=== PATIENT | female | born 1965 | race Caucasian/White ===

== ENCOUNTER 2024-10-01 12:37 | Emergency (ER) | payer OTHER, SELFPAY ==
[2024-10-01 13:02] VITALS: BP 130/84; PULSE 80; RESP 18; TEMP 36.9; O2SAT 98; BMI 29.1
--- NOTE | 2024-10-01 13:07 | XR_ITS ---
Examination: CT abdomen and pelvis without contrast. Coronal 3-D reconstructions. Sagittal 2-D reconstructions. Date and time of exam:October 01, 2024 1335 hours INDICATIONS: Right upper abdominal pain beginning 2 weeks ago CTDI: vol (mGy): 9 DLP: (mGycm): 551 Technique: Axial images of the abdomen have been obtained, 3 mm slice thickness Intravenous contrast material has not been administered. Low dose protocols were performed. One or more of the following dose reduction techniques were used; automated exposure control, adjustment of the mA and/or KV according to patient size, use of iterative reconstruction technique. Findings: No focal liver or splenic lesions No gallstones No pancreatic or adrenal mass. Moderate renal parenchymal scar formation No renal or ureteral calculi, no hydronephrosis Aortic calcification no aneurysmal dilatation Normal appendix No bowel obstruction Colonic diverticulosis, no diverticulitis Minimal thickening of the urinary bladder wall up to 4 mm Absent uterus Moderate osteopenia IMPRESSION: Mild cystitis pattern Normal appendix
--- NOTE | 2024-10-01 13:07 | XR_ITS ---
Examination: Abdomen sonogram, Limited Date and time of exam: October 01, 2024 1342 hours INDICATIONS: Right upper abdominal pain and nausea beginning 2 weeks ago Technique: Real-time jack scale transabdominal sonographic images of the upper abdomen obtained. Findings: Normal gallbladder Normal common bile duct 0.3 cm Pancreatic head 2.2 cm Liver 15.5 cm focal fatty sparing adjacent to gallbladder 14 mm and 33 mm Fatty infiltration Normal hepatopedal portal venous flow Patent IVC IMPRESSION: Normal gallbladder Probable focal areas of fatty sparing as above, recommend 3 month follow-up hepatic sonography
--- NOTE | 2024-10-01 13:08 | PD.EDRME ---
Rapid Medical Screening Exam RME Arrival date/time: 10/01/24 12:37 59-year-old female presents emergency department for complaints of nausea and diarrhea Chief Complaint: Abdominal Pain Vital signs: Vital Signs Temperature 98.5 F 10/01/24 13:02 Pulse Rate 80 10/01/24 13:02 Respiratory Rate 18 10/01/24 13:02 Blood Pressure 130/84 10/01/24 13:02 Pulse Oximetry (%) 98 10/01/24 13:02 Oxygen Delivery Method Room Air 10/01/24 13:02
[2024-10-01 13:28] LABS: Basophils # (Auto) 0.1 Thou/mm3 (0.0-0.2); Basophils % (Auto) 1 % (0-2.5); Eosinophils # (Auto) 0.2 Thou/mm3 (0.0-0.5); Eosinophils % (Auto) 2 % (0-10); Hematocrit 40.3 % (36.0-46.0); Hemoglobin 13.9 g/dL (12.0-16.0); Immature Granulocytes % (Auto) 0 % (0-0); Immature Granulocytes Auto 0.04 Thou/mm3 (0.00-0.00); Lymphocytes # (Auto) 3.2 Thou/mm3 (1.0-4.8); Lymphocytes % (Auto) 30 % (10-50); Mean Corpuscular HGB Conc 34.5 g/dl (31.0-37.0); Mean Corpuscular Hemoglobin 28.1 pg (25.0-35.0); Mean Corpuscular Volume 81 fL (80-100); Monocytes # (Auto) 0.5 Thou/mm3 (0.0-0.8); Monocytes % (Auto) 5 % (0-12); Neutrophils # (Auto) 6.5 Thou/mm3 (1.8-7.7); Neutrophils % (Auto) 62 % (37-80); Nucleated Red Blood Cell % 0 /100 WBC (0); Platelet Count 243 Thou/mm3 (140-440); RDW Standard Deviation 41.3 fL (36.4-46.3); Red Blood Count 4.95 Miln/mm3 (4.00-5.20); White Blood Count 10.5 Thou/mm3 (3.6-11.0)
[2024-10-01 13:48] LABS: Alanine Aminotransferase 14 U/L (10-49); Albumin, Serum 4.8 gm/dL (3.5-5.0); Alkaline Phosphatase 89 U/L (46-116); Anion Gap 4 (7-16); Aspartate Amino Transferase 16 U/L (0-34); BUN/Creatinine Ratio 9 Ratio (12-20); Bilirubin,Total 0.2 mg/dL (0.3-1.2); Blood Urea Nitrogen 9 mg/dL (9-23); Calcium 9.8 mg/dL (8.3-10.6); Calcium (Corrected) 9.8 mg/dL (8.5-10.1); Carbon Dioxide 25.4 mMol/L (20.0-31.0); Chloride 109 mMol/L (98-107); Estimated Creatinine Clearance 67.6 mL/min (>60); Globulin 2.4 gm/dL (2.3-3.5); Glucose 102 mg/dL (74-106); Lipase 46 U/L (12-53); Osmolality,Calculated 274 (275-295); Potassium 4.3 mMol/L (3.4-5.1); Sodium 138 mMol/L (136-145); Total Protein 7.2 gm/dL (5.7-8.2); eGFR > 60 See Note
[2024-10-01 14:01] LABS: Collection Type, Urine Clean Catch; WBC,Urine 0 /hpf (0-5)
[2024-10-01 14:50] LABS: Bacteria,Urine Rare; Bilirubin,Urine Negative (Negative); Blood,Urine 1+ (Negative); Clarity,Urine Clear (Clear/Hazy); Color,Urine Lt-Yellow (Lt Yel-Yel); Culture Indicated,Urine Not Indicated; Glucose, Urine Negative (Negative); Ketones,Urine Negative (Negative); Leukocyte Esterase,Urine Negative (Negative); Nitrite,Urine Negative (Negative); PH,Urine 6.5 (5.0-7.0); Protein,Urine Negative (Neg - Trace); RBC,Urine 2 /hpf (0-3); Specific Gravity,Urine 1.008 (1.001-1.035); Squamous Epithelial Cell,Urine 3 /hpf (0-5); Urobilinogen,Urine Negative mg/dL (0.0-1.0)
[2024-10-01 16:37] VITALS: BP 162/94; PULSE 91; RESP 18; TEMP 36.7; O2SAT 98
--- NOTE | 2024-10-01 16:45 | PD.EDADULT ---
ED General RME/HPI General Chief complaint: Abdominal Pain Stated complaint: RUQ ABD PAIN Time Seen by Provider: 10/01/24 16:39 Arrival date/time: 10/01/24 12:37 CC: Epigastric pain that radiates to the back HPI ongoing for the last 2 weeks. The patient admits upon reflection that she has had multiple episodes of this in the past to decades, the last ones approximately 3 to 4 years ago. Patient states she had a complete workup by Dr. Osorio at that time and they found nothing . Patient does not take any [id number] medications or prescription medications for remedy of this situation. Patient denies any lower abdominal pain states she has intermittent nausea but no vomiting, and intermittent diarrhea. Patient is awake alert oriented and patient's other concern is that she has 2 family members who can developed pancreatic cancer and she was current concern this would be it as well. Patient is awake alert oriented mildly anxious but not in any acute distress. RME / HPI RME / HPI narrative: 10/01/24 12:37 59-year-old female presents emergency department for complaints of nausea and diarrhea Related Data Home Medications ?Medication ?Instructions ?Recorded ?Confirmed esomeprazole magnesium 40 mg 40 mg PO QDAY ##0 05/11/13 capsule,delayed release (Nexium) Previous Rx's ?Medication ?Instructions ?Recorded clindamycin HCl 300 mg capsule 1 cap PO TID Infection #30 caps 05/11/13 (Cleocin Hcl) famotidine 20 mg tablet 20 mg PO QDAY #30 tabs 10/01/24 ondansetron 4 mg disintegrating 4 mg PO Q8H #10 tabs 10/01/24 tablet Allergies Allergy/AdvReac Type Severity Reaction Status Date / Time ketorolac (From Toradol) Allergy SWELLING Verified 10/01/24 12:40 Review of Systems Review of Systems Narrative Review of Systems: GEN: No fever, no chills, no weight loss EYES: No discharge, no visual changes, no pain HEENT: No ear pain, no congestion, no sore throat PULM: No shortness of breath, no cough, no congestion CV: No chest pain, no dyspnea on exertion, no palpitations GI: No nausea, no vomiting, no diarrhea, + pain, no constipation : No frequency, no urgency, no dysuria MUSC/SKEL: No joint pain, no back pain SKIN: No rash PSYCH: No hallucinations, no depression HEME/LYMPH: No easy bleeding or bruising tendencies NEURO: No weakness, no headache Past Medical History Past Medical History CARDIAC: Negative Congestive Heart Failure RESPIRATORY: Negative Chronic Obstructive Pulmonary Disease (COPD) GENITOURINARY: Negative Renal Disease ENDOCRINE: Negative Diabetes Mellitus Type 1 or Diabetes Mellitus Type 2 Social History SMOKING STATUS: Current every day smoker ED Exam Narrative Physical exam: [General: Anxious in mild discomfort but not in any acute distress Head normocephalic HEENT: Eyes pupils are PERRLA EOMs are intact mouth pink moist membranes uvula is midline swallow symmetrical phonation is normal. Within acceptable limits Neck is supple nontender Chest equal chest rise nontender to palpation Respiratory: Clear to auscultation no wheezes crackles or rubs CV: Rate rhythm is regular no murmurs rubs or clicks Abdomen mild epigastric pain with no reflexive guarding or rebound tenderness no abdominal pain in the lower quadrants. Positive bowel sounds. Back: No CVA tenderness no spinous process tenderness from cervical spine thoracic and lumbar spine Skin: Intact no petechiae rash induration ulceration or crepitus Extremities: Moving all extremity against resistance cap refill less than 2 seconds neurosensory intact Neuro: Awake alert oriented x3 Glascow coma 15 no focal deficits] Course Course Course Narrative: Given the patient's condition and recurrent history of this suspect this is a gastritis or reflux disease. Patient will be referred to Dr. Kruse, for endoscopy in the meantime the patient be placed in a bland diet given H2 peggy as well as nausea medication patient advised if there is worsening of symptoms spite of these medications return the emergency room immediately for further evaluation. Quality Measures none Orders Category Date Time Status CT abdomen pelvis wo con Stat Exams 10/01/24 13:07 Completed US gall bladder Stat Exams 10/01/24 13:07 Completed CBC Stat Lab 10/01/24 13:12 Completed Comprehensive Metabolic Panel Stat Lab 10/01/24 13:12 Completed Lipase Stat Lab 10/01/24 13:12 Completed UA, C/S IF [Urinalysis, C/S if Indicated] Stat Lab 10/01/24 13:55 Completed Famotidine [Pepcid] Med 10/01/24 16:39 Discontinued 20 mg PO X1 ONE Ondansetron Odt [Zofran Odt] Med 10/01/24 16:39 Discontinued 4 mg PO X1 ONE Vital Signs Vital signs: Vital Signs Temperature 98.5 F 10/01/24 13:02 Pulse Rate 80 10/01/24 13:02 Respiratory Rate 18 10/01/24 13:02 Blood Pressure 130/84 10/01/24 13:02 Pulse Oximetry (%) 98 10/01/24 13:02 Oxygen Delivery Method Room Air 10/01/24 13:02 Discharge Plan Plan Patient Disposition: HOME (Self Care) Patient condition on transfer: Stable Prescriptions/Referrals Prescriptions/Med Rec: New famotidine 20 mg tablet 20 mg PO QDAY Qty: 30 0RF ondansetron 4 mg tablet,disintegrating 4 mg PO Q8H Qty: 10 0RF No Action esomeprazole magnesium [Nexium] 40 MG capsule,delayed release(DR/EC) 40 mg PO QDAY Qty: 0 clindamycin HCl [Cleocin Hcl] 300 MG capsule 1 cap PO TID Qty: 30 0RF Rx Instructions: FOR INFECTION Referrals: Mau Browning MD [Primary Care Provider] - In 1 week Luis Kruse MD [Physician] - In 1 week Problem List Clinical Impression: Epigastric pain Patient/Caregiver Discharge Instructions Education Materials: ED Diet, [place] (Adult), ED Epigastric Pain (Uncertain Cause) Additional Instructions: [place] diet. Take the medication as prescribed, avoid eating or drinking anything for 2 hours before you go to bed. If there is worsening symptoms return the emergency room for further evaluation otherwise follow-up with an outpatient referral for GI consider endoscopy. Print Language: Sinhala Stand Alone Forms: Alexsandra Award Info., Patient Portal Info Letter, Work/School Release PA/[employer] Supervising Physician PA/[employer] Supervising Physician: Mac Young ENP [facility] Clinical Information Provided by: patient Medical Records reviewed [facility] Labs Lab(s) Interpretation(s): CBC shows no acute leukocytosis anemia thrombocytopenia CMP shows a chloride of 109, no other electrolyte imbalances renal impairment transaminitis T. bili at 0.2. Urine is negative for UTI. Imaging Imaging Interpretation(s): Ultrasound of the gallbladder is interpreted by me read by radiology as negative for any acute finding CT of the abdomen is interpreted by read by radiology shows no acute finding there are no pancreatic masses appendix is normal. Medication Administration(s) Medication Administration History Discontinued Medications Famotidine (Famotidine 20 Mg Tablet) 20 mg PO X1 ONE Stop: 05/06/25 16:40 Ondansetron HCl (Ondansetron Odt 4 Mg Tabrap) 4 mg PO X1 ONE; Protocol Stop: 10/01/24 16:40
[2024-10-01] MEDS: ONDANSETRON ODT 4 MG TABRAP PO (16:53)
[2024-10-01] MEDS: FAMOTIDINE 20 MG TABLET PO (16:53)
== END 2024-10-01 16:58 | disposition home or self-care (01) ==
PROVIDERS: Nurse Practitioner Primary Care; Emergency Provider Emergency Medicine; PCP Family Medicine
DX: R10.13 Epigastric pain (principal)
CPT/HCPCS: 36415; 74176; 76705; 80053; 81001; 83690; 85025; 99284; Q0162; A9270